=== PATIENT | male | born 1960 | race Caucasian/White ===

== ENCOUNTER → 2016-08-24 | Outpatient (CLI) | payer BC ==
[2016-08-24 11:33] LABS: HEMOGLOBIN 16.4 gm/dl (14.0-17.5); RED BLOOD COUNT 5.17 M/UL (4.20-5.50); WHITE BLOOD COUNT 5.6 K/UL (4.5-11.0)
[2016-08-24 11:47] LABS: BUN/CREATININE RATIO 15 (0-10)
== END ==
LOC: LAB 10:55
PROVIDERS: Emergency Medicine
DX: R10.12 Left upper quadrant pain (principal); R07.82 Intercostal pain; K59.09 Other constipation; I10 Essential (primary) hypertension; D69.59 Other secondary thrombocytopenia; M79.1 Myalgia
CPT/HCPCS: 36415; 71020; 74000; 80053; 82150; 83690; 85027

== ENCOUNTER → 2020-08-11 | Outpatient (CLI) | payer BC ==
[~2020-08-11] MED LIST: FLOMAX0.4 MG PO; GABAPENTIN600 MG PO; IBUPROFEN600 MG PO; MOBIC15 MG PO; OXYCODONE HCL10 MG PO; OXYCONTIN20 MG PO; PEPCID COMPLET1 EACH PO; PERCOCET 10-321 EACH PO; PERCOCET 5/325 T1 EA PO; PRINIVIL20 MG PO; PROBIOTIC1 EAC1 PO; PROTONIX40 M1 PO; VANCOCIN HCL125 MG PO; ZYRTEC10 MG PO
[2020-08-11 11:21] LABS: HEMOGLOBIN 15.6 gm/dl (14.0-17.5); RED BLOOD COUNT 4.73 M/UL (4.20-5.50); WHITE BLOOD COUNT 5.9 K/UL (4.5-11.0)
[2020-08-11 11:57] LABS: BUN/CREATININE RATIO 11 (0-10)
[2020-08-13 11:15] LABS: CHOLESTEROL, TOTAL 136 mg/dL (100-199); HDL SIZE 9.2 nm (>=9.2); HDL-C 49 mg/dL (>39); HDL-P (TOTAL) 29.5 umol/L (>=30.5); LARGE HDL-P 4.5 umol/L (>=4.8); LARGE VLDL-P 3.2 nmol/L (<=2.7); LDL-C 72 mg/dL (0-99); LDL-P 905 nmol/L (<1000); LP-IR SCORE 53 (<=45); SMALL LDL-P 353 nmol/L (<=527); TRIGLYCERIDES 79 mg/dL (0-149); VLDL SIZE 52.5 nm (<=46.6)
[2020-08-14 21:09] LABS: TESTOSTERONE, SERUM 174 ng/dL (264-916)
== END ==
LOC: LAB 10:56
PROVIDERS: Emergency Medicine
DX: C18.6 Malignant neoplasm of descending colon (principal); A04.72 Enterocolitis due to Clostridium difficile, not specified as recurrent; D69.59 Other secondary thrombocytopenia; D75.1 Secondary polycythemia; E29.1 Testicular hypofunction; F52.21 Male erectile disorder; G60.3 Idiopathic progressive neuropathy; G89.4 Chronic pain syndrome; I10 Essential (primary) hypertension; J01.01 Acute recurrent maxillary sinusitis; J30.89 Other allergic rhinitis; K21.9 Gastro-esophageal reflux disease without esophagitis; K59.09 Other constipation; K63.5 Polyp of colon
CPT/HCPCS: 36415; 80053; 80061; 83704; 84153; 84402; 84403; 85025

== ENCOUNTER → 2021-02-11 | Outpatient (CLI) | payer BC ==
[2021-02-11 11:19] LABS: HEMOGLOBIN 16.1 gm/dl (14.0-17.5); RED BLOOD COUNT 5.15 M/UL (4.20-5.50); WHITE BLOOD COUNT 5.4 K/UL (4.5-11.0)
[2021-02-11 11:46] LABS: BUN/CREATININE RATIO 18 (0-10)
== END ==
LOC: LAB 09:53
PROVIDERS: Emergency Medicine
DX: I10 Essential (primary) hypertension (principal); E29.1 Testicular hypofunction; F52.21 Male erectile disorder; D69.59 Other secondary thrombocytopenia
CPT/HCPCS: 36415; 80053; 84402; 84403; 85025

== ENCOUNTER → 2021-05-07 | Outpatient (CLI) | payer BC ==
[2021-05-07 11:02] LABS: BUN/CREATININE RATIO 17 (0-10)
== END ==
LOC: LAB 09:39
PROVIDERS: Emergency Medicine
DX: I10 Essential (primary) hypertension (principal); F52.21 Male erectile disorder; E29.1 Testicular hypofunction; M51.36 Other intervertebral disc degeneration, lumbar region
CPT/HCPCS: 36415; 80053

== ENCOUNTER → 2021-11-23 | Outpatient (CLI) | payer BC ==
[2021-11-23 10:24] LABS: HEMOGLOBIN 17.5 gm/dl (14.0-17.5); RED BLOOD COUNT 5.43 M/UL (4.20-5.50); WHITE BLOOD COUNT 7.1 K/UL (4.5-11.0)
[2021-11-23 17:19] LABS: BUN/CREATININE RATIO 17 (0-10)
[2021-11-25 08:14] LABS: PROSTATE-SPECIFIC AG 1.8 ng/mL (0.0-4.0)
== END ==
LOC: LAB 09:31
PROVIDERS: Emergency Medicine
DX: I10 Essential (primary) hypertension (principal); G60.3 Idiopathic progressive neuropathy; F52.21 Male erectile disorder; M51.36 Other intervertebral disc degeneration, lumbar region; E29.1 Testicular hypofunction
CPT/HCPCS: 36415; 80053; 84153; 84443; 84550; 85025

== ENCOUNTER → 2022-01-04 | Outpatient (CLI) | payer BC ==
[2022-01-04 12:09] LABS: HEMOGLOBIN 17.1 gm/dl (14.0-17.5); RED BLOOD COUNT 5.21 M/UL (4.20-5.50); WHITE BLOOD COUNT 5.8 K/UL (4.5-11.0)
[2022-01-04 12:31] LABS: BUN/CREATININE RATIO 24 (0-10)
== END ==
LOC: LAB 11:20
PROVIDERS: Emergency Medicine
DX: I10 Essential (primary) hypertension (principal); M51.36 Other intervertebral disc degeneration, lumbar region; E29.1 Testicular hypofunction; D75.1 Secondary polycythemia
CPT/HCPCS: 36415; 80053; 84402; 84403; 85025